=== PATIENT | male | born 1955 | race Caucasian/White ===

== ENCOUNTER 2018-02-10 09:16 | Emergency (ER) | payer BC ==
[2018-02-10] MEDS ORDERED: Lidocaine 1% MPF* 2 ML VIAL INJ ONE (09:27)
[2018-02-10] MEDS ORDERED: Lidocaine 1%* 5 ML VIAL ONE (09:32)
[2018-02-10 09:34] VITALS: BP 170/95
--- NOTE | 2018-02-10 09:40 | UC ---
Laceration HPI - HPI Summary HPI Summary: This is scribe Marycruz Jaime documenting for attending Corbin Bone M.D. Pt is a 62 y/o M who presents to [facility] c/o L thumb laceration. This morning, the pt was picking eggplants with a knife when he slipped, cutting the L thumb. Initially, the bleeding had slowed after his dressed it, but he took a shower and the bleeding worsened again. Associated pain is mild ranked 1/10. Took 81 mg ASA last night, but is not on any other blood thinners. - History Of Current Complaint Chief Complaint: UCLaceration Stated Complaint: THUMB LAC Time Seen by Provider: 02/10/18 09:26 Hx Obtained From: Patient Laceration Location: Finger - L thumb Mechanism Of Injury: Sharp Trauma - Knife Onset/Duration: Still Present Severity: Mild Pain Intensity: 1 Pain Scale Used: 0-10 Numeric Aggravating Factors: Nothing - Allergies/Home Medications Allergies/Adverse Reactions: Allergies Allergy/AdvReac Type Severity Reaction Status Date / Time No Known Allergies Allergy Verified 01/21/13 12:12 Home Medications: Home Medications Aspirin [Aspir-Low] 02/10/18 [History] Simvastatin 02/10/18 [History] PMH/Surg Hx/FS Hx/Imm Hx - Additional Past Medical History Additional PMH: NEGATIVE PMHx: DM, HTN, CAD - Surgical History Surgical History: Yes Surgery Procedure, Year, and Place: hip replacement right 2006, - Family History Known Family History: Positive: Other - Colon [place] - Social History Lives: With Family Alcohol Use: Occasionally Substance Use Type: None Smoking Status (MU): Never Smoked Tobacco Review of Systems Constitutional: Negative Skin: Other - L thumb laceration Eyes: Negative ENT: Negative Respiratory: Negative Cardiovascular: Negative Gastrointestinal: Negative Genitourinary: Negative Motor: Negative Neurovascular: Negative Musculoskeletal: Negative Neurological: Negative Psychological: Negative All Other Systems Reviewed And Are Negative: Yes Physical Exam - Summary Physical Exam Summary: VITAL SIGNS: Reviewed. GENERAL: Patient is a well-developed and nourished male who is lying comfortable in the stretcher. Patient is not in any acute respiratory distress. HEAD AND FACE: Normocephalic EYES: PERRLA, EOMI x 2. EARS: Hearing grossly intact. MOUTH: Oropharynx within normal limits. NECK: Supple, trachea is midline, no adenopathy, no JVD, no carotid bruit. CHEST: Symmetric, no tenderness at palpation LUNGS: Clear to auscultation bilaterally. No wheezing or crackles. CVS: Regular rate and rhythm, S1 and S2 present, no murmurs or gallops appreciated. EXTREMITIES: Full ROM in all major joints, no edema, no cyanosis or clubbing. NEURO: Alert and oriented x 3. No acute neurological deficits. Speech is normal and follows commands. SKIN: Dry and warm, 1.5 cm laceration on L thumb Triage Information Reviewed: Yes Vital Signs: Initial Vital Signs Temp 98.9 F 02/10/18 09:27 Pulse 86 02/10/18 09:27 Resp 18 02/10/18 09:27 BP 170/95 02/10/18 09:27 Pulse Ox 97 02/10/18 09:27 Vital Signs Reviewed: Yes Laceration Repair - Laceration Repair L thumb Description: Linear Laceration Size After Repair: Length (cm) - 1.5 cm Anesthesia Used: 1.0% Lido Closure Material: Sutures - 6 Closure Method: Single Layer Suture Of: Skin Suture Type: Nylon - 4-0 Laceration Course/Dx - Course/Dx Course Of Treatment: The patient was found to have increased BP in UC. The patient will follow up with PCP for better control of BP. . 62-year-old male who says to the urgent care with a laceration. Up-to-date on vaccinations. Laceration was repaired. medications. Discharged home with follow-up with PCP 7-10 days for suture removals. - Differential Dx - Laceration/Wound Provider Diagnoses: Laceration left 1st digit Discharge - Sign-Out/Discharge Documenting (check all that apply): Patient Departure - Discharge All imaging exams completed and their final reports reviewed: No Studies - Discharge Plan Condition: Stable Disposition: HOME Patient Education Materials: Care For Your Stitches (ED), Finger Laceration (ED ) Referrals: Eric Ashby MD [Primary Care Provider] - Additional Instructions: RETURN TO ED OR URGENT CARE FOR ANY NEW OR WORSENING SYMPTOMS. Patient is to return to the urgent care or go to see the primary care physician in 7-10 days for suture removals. If you develop any increasing pain, redness, patient should return to the urgent care for reassessment. - Billing Disposition and Condition Condition: STABLE Disposition: Home - Attestation Statements Document Initiated by Scribe: Yes Documenting Scribe: This is scribe Marycruz DiFabio documenting for attending Corbin Bone M.D. Provider For Whom Kie is Documenting (Include Credential): This is scribe Marycruz DiFabio documenting for attending Corbin Bone M.D. Scribe Attestation: I, This is scribe Marycruz DiFabio documenting for attending Corbin Bone M.D., scribed for This is scribe Marycruz DiFabio documenting for attending Corbin Bone M.D. on 02/28/18 at 1207. Scribe Documentation Reviewed: Yes Provider Attestation: The documentation as recorded by the scribe, This is scribe Marycruz DiFabio documenting for attending Corbin Bone M.D. accurately reflects the service I personally performed and the decisions made by me, This is scribe Marycruz DiFabio documenting for attending Corbin Bone M.D.
== END 2018-02-10 10:38 | disposition home or self-care (01) ==
LOC: UCEAST 09:16
DX: S61.012A Laceration without foreign body of left thumb without damage to nail, initial encounter (principal); W26.0XXA Contact with knife, initial encounter; Y93.H2 Activity, gardening and landscaping; Y92.007 Garden or yard of unspecified non-institutional (private) residence as the place of occurrence of the external cause; Z79.82 Long term (current) use of aspirin; Z96.641 Presence of right artificial hip joint
CPT/HCPCS: 12001; 99211; G0463